=== PATIENT | male | born 1975 | race Hispanic/Latino ===

== ENCOUNTER 2018-07-18 09:51 | Inpatient (IN) | payer MEDICAID, OTHER ==
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
[2018-07-18 10:14] VITALS: BMI 32.5
[2018-07-18] MEDS ORDERED: Sodium Chloride 0.9% 1,000 ML IV STA (10:32)
[2018-07-18] MEDS ORDERED: Morphine 2 mg/ml ISec IVP STA (10:32)
[2018-07-18] MEDS ORDERED: Vancomycin 1gm in NS 250ml 1 GM/250 ML BAG IVPB STA (10:34)
[2018-07-18 11:13] LABS: BASO # 0.03 K/mm3 (0.0-2.0); BASO % 0.3 % (0.0-3.0); EOS # 0.1 (0.0-0.7); EOS % 1.4 % (1.5-5.0); HEMOGLOBIN 15.7 g/dL (14.0-18.0); LYMPH # 1.6 (1.2-3.4); LYMPH % 17.2 % (22.0-35.0); MEAN CELL VOLUME 86.3 fl (80.0-105.0); MEAN CORPUSCULAR HEMOGLOBIN 29.1 pg (25.0-35.0); MEAN CORPUSCULAR HGB CONC 33.8 g/dl (31.0-37.0); MEAN PLATELET VOLUME 10.1 fl (7.0-11.0); MONO # 0.7 (0.1-0.6); RBC 5.39 10^6/uL (3.5-6.1); RED CELL DISTRIBUTION WIDTH 12.9 % (11.5-14.5); WHITE BLOOD COUNT 9.2 10^3/uL (4.5-11.0)
[2018-07-18 11:19] LABS: ALB/GLOB RATIO 1.2 (1.1-1.8); ALBUMIN 4.1 g/dL (3.0-4.8); ALT/SGPT 21 U/L (7-56); AST/SGOT 25 U/L (17-59); BLOOD UREA NITROGEN 17 mg/dL (7-21); CALCIUM 9.1 mg/dL (8.4-10.5); GFR NON-AFRICAN AMERICAN > 60; INR 1.22; PARTIAL THROMBOPLASTIN TIME 44.1 Seconds (26.9-38.3); PROTHROMBIN TIME 13.8 SECONDS (9.4-12.5)
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
[2018-07-18] MEDS ORDERED: Influenza Vaccine 60 mcg/0.5 mL SYR (4YR UP) IM ONE (15:14)
[2018-07-18] MEDS ORDERED: Pneumococcal 23-Valent Vaccine IM ONE (15:14)
[2018-07-18] MEDS: Vancomycin 1gm in NS 250ml 1 GM/250 ML BAG IVPB SCH (15:23)
[2018-07-18 15:57] VITALS: RESP 20
[2018-07-19 06:28] LABS: BASO # 0.02 K/mm3 (0.0-2.0); BASO % 0.2 % (0.0-3.0); EOS # 0.2 (0.0-0.7); EOS % 1.7 % (1.5-5.0); LYMPH # 2.1 (1.2-3.4); LYMPH % 19.6 % (22.0-35.0); MEAN CELL VOLUME 85.5 fl (80.0-105.0); MEAN CORPUSCULAR HEMOGLOBIN 28.9 pg (25.0-35.0); MEAN CORPUSCULAR HGB CONC 33.8 g/dl (31.0-37.0); MEAN PLATELET VOLUME 10.2 fl (7.0-11.0); MONO # 0.7 (0.1-0.6); MONO % 6.7 % (1.0-6.0); RBC 4.54 10^6/uL (3.5-6.1); RED CELL DISTRIBUTION WIDTH 12.8 % (11.5-14.5); WHITE BLOOD COUNT 10.5 10^3/uL (4.5-11.0)
[2018-07-19 06:47] LABS: HEMOGLOBIN 13.1 g/dL (14.0-18.0)
[2018-07-19 07:07] LABS: ALB/GLOB RATIO 1.2 (1.1-1.8); ALBUMIN 3.4 g/dL (3.0-4.8); ALT/SGPT 19 U/L (7-56); AST/SGOT 22 U/L (17-59); BLOOD UREA NITROGEN 18 mg/dL (7-21); CALCIUM 8.6 mg/dL (8.4-10.5); GFR NON-AFRICAN AMERICAN > 60
[2018-07-19 08:01] VITALS: BP 134/82; PULSE 84; TEMP 98.1; O2SAT 95
--- NOTE | 2018-07-19 08:46 | CP.PCM.PN ---
<DamiánanjanaChucky - Last Filed: 07/19/18 13:16> Subjective - Date & Time of Evaluation Date of Evaluation: 07/19/18 Time of Evaluation: 08:43 - Subjective Subjective: Medicine Progress Note for Dr. Lawson 42M seen and evaluated at bedside morning. No acute events overnight. Patient complains of right foot burning that is intermittent. Has difficulty ambulating on right lower extremity. Denies f/c, n/v/d, SOB, CP, or urinary symptoms. Objective - Vital Signs/Intake and Output Vital Signs (last 24 hours): Temp Pulse Resp BP Pulse Ox 98.1 F 84 20 134/82 95 07/19/18 08:01 07/19/18 08:01 07/19/18 08:01 07/19/18 08:01 07/19/18 08:01 Intake and Output: 07/19/18 07/19/18 06:59 18:59 Intake Total 1080 Output Total 1200 Balance -120 - Medications Medications: Current Medications Heparin Sodium (Porcine) (Heparin) 5,000 units SC Q12 DEANN; Protocol Last Admin: 07/18/18 21:56 Dose: 5,000 units Ampicillin Sodium/Sulbactam (Sodium 3 gm/ Sodium Chloride) 100 mls @ 200 mls/hr IVPB Q6 DEANN; Protocol Last Admin: 07/19/18 05:01 Dose: 200 mls/hr Vancomycin HCl (Vancomycin 1gm) 1 gm in 250 mls @ 167 mls/hr IVPB DAILY DEANN; Protocol Last Admin: 07/18/18 15:23 Dose: Not Given Ketorolac Tromethamine (Toradol) 30 mg IVP Q6H PRN PRN Reason: pain severe 7-10 Last Admin: 07/19/18 05:13 Dose: 30 mg - Labs Labs: 07/19/18 06:15 07/19/18 06:15 PT 13.8 SECONDS (9.4-12.5) H 07/18/18 10:45 INR 1.22 07/18/18 10:45 APTT 44.1 Seconds (26.9-38.3) H 07/18/18 10:45 - Constitutional Appears: Well, Non-toxic, No Acute Distress - Head Exam Head Exam: ATRAUMATIC, NORMAL INSPECTION, NORMOCEPHALIC - Eye Exam Eye Exam: EOMI - ENT Exam ENT Exam: Mucous Membranes Moist - Respiratory Exam Respiratory Exam: NORMAL BREATHING PATTERN. absent: Wheezes, Respiratory Distress - Cardiovascular Exam Cardiovascular Exam: REGULAR RHYTHM, +S1, +S2. absent: Murmur - GI/Abdominal Exam GI & Abdominal Exam: Soft, Normal Bowel Sounds. absent: Tenderness - Extremities Exam Additional comments: Right and left foot wrapped in kerlex - c/d/i Decreased range of motion at ankles Tenderness to palpation - Neurological Exam Neurological Exam: Alert, Awake, Oriented x3 - Psychiatric Exam Psychiatric exam: Normal Affect, Normal Mood - Skin Skin Exam: Dry, Intact, Warm Assessment and Plan - Assessment and Plan (Free Text) Assessment: 42M presenting with bilateral swift of the dorsal aspect of foot, right worse than left, with increasing pain and cellulitic changes. Failed outpatient Keflex treatment. Plan: Right and Left Foot Burn w/ cellulitic changes - F/u blood and wound cultures - Vancomycin and Unasyn for broad spectrum coverage - Toradol for pain - Daily labs - Monitor for acute symptomatic changes - Podiatry: sterile gauze, silvadene - F/u foot x-rays - Discussed with [facility] regarding recommendations - F/u PT/OT evaluation Patient plan reviewed with Dr. Lulu Kapoor PGY1 <Jarod Lawson - Last Filed: 07/20/18 16:25> Objective - Vital Signs/Intake and Output Vital Signs (last 24 hours): Temp Pulse Resp BP Pulse Ox 98.1 F 84 20 134/82 95 07/19/18 08:01 07/19/18 08:01 07/19/18 08:01 07/19/18 08:01 07/19/18 08:01 - Labs Labs: 07/19/18 06:15 07/19/18 06:15 PT 13.8 SECONDS (9.4-12.5) H 07/18/18 10:45 INR 1.22 07/18/18 10:45 APTT 44.1 Seconds (26.9-38.3) H 07/18/18 10:45 Attending/Attestation - Attestation I have personally seen and examined this patient.: Yes I have fully participated in the care of the patient.: Yes I have reviewed all pertinent clinical information, including history, physical exam and plan: Yes
[2018-07-19] MEDS: Vancomycin 1gm in NS 250ml 1 GM/250 ML BAG IVPB SCH (09:17)
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
--- NOTE | 2018-07-19 11:02 | RAD ---
Date of service: 07/19/2018 PROCEDURE: Left Foot Radiographs. HISTORY: foot swift COMPARISON: None. FINDINGS: BONES: Normal. No fracture. JOINTS: Normal. SOFT TISSUES: Normal. OTHER FINDINGS: None. IMPRESSION: Normal left foot radiographs.
--- NOTE | 2018-07-19 11:03 | RAD ---
Date of service: 07/19/2018 PROCEDURE: Right Foot Radiographs. HISTORY: foot swift COMPARISON: None. FINDINGS: BONES: Normal. No fracture. JOINTS: Normal. SOFT TISSUES: Normal. OTHER FINDINGS: None. IMPRESSION: Normal right foot radiographs.
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
[2018-07-20] MEDS ORDERED: Silver Sulfadiazine 1% Cream (25 gm) TP SCH (10:00)
== END 2018-07-19 17:12 | disposition home or self-care (01) | DRG 383 ==
LOC: ED 09:51 → ERH 13:21 → 3RNO 14:48
PROVIDERS: ADMIT Internal Medicine; ATTEND Internal Medicine
DX: L03.115 Cellulitis of right lower limb (principal); T25.221A Burn of second degree of right foot, initial encounter; L03.116 Cellulitis of left lower limb; T25.222A Burn of second degree of left foot, initial encounter; X12.XXXA Contact with other hot fluids, initial encounter; Y92.000 Kitchen of unspecified non-institutional (private) residence as the place of occurrence of the external cause